=== PATIENT | male | born 1975 | race Two or more races ===

== ENCOUNTER 2019-05-22 16:38 | Inpatient (IN) | payer OTHER ==
[2019-05-22 18:36] VITALS: BMI 30.7
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
[2019-05-22] MEDS ORDERED: ALBUTEROL SO4 8 GM HFA INHALER IH PRN (20:05)
[2019-05-22] MEDS ORDERED: ALBUTEROL SO4 0.083% IH SOL 2.5 MG/3 ML VIAL.NEB. NEB PRN (20:05)
[2019-05-22] MEDS ORDERED: cloNIDine HCL 0.1 MG TABLET PO SCH (20:15)
[2019-05-22] MEDS ORDERED: LOPERAMIDE HCL 2 MG CAPSULE PO PRN (20:21)
[2019-05-22] MEDS ORDERED: MENTHOL/PHENOL 1 EACH UD MM PRN (20:21)
[2019-05-22] MEDS ORDERED: MAGNESIUM CITRATE 300 ML BOTTLE PO PRN (20:21)
[2019-05-22] MEDS ORDERED: P-EPHED 60MG/TRIPROLIDI 2.5MG TABLET PO PRN (20:21)
[2019-05-22] MEDS ORDERED: guaiFENesin 200 MG/10 ML 10 ML UNIT-DOSE CUPS PO PRN (20:21)
[2019-05-22] MEDS ORDERED: MAG HYDROX/AL HYDROX/SIMETH 30 ML UNIT-DOSE CUP PO PRN (20:21)
[2019-05-22] MEDS ORDERED: IBUPROFEN 400 MG TABLET (FP) PO PRN (20:21)
[2019-05-22] MEDS ORDERED: MAGNESIUM HYDROX 2400MG/30ML ORAL SUSPENSION 30 ML CUP PO PRN (20:21)
[2019-05-22] MEDS ORDERED: THIAMINE HCL 100 MG TABLET (FP) PO SCH (22:00)
[2019-05-22] MEDS ORDERED: MELATONIN 5 MG TABLETS PO PRN (22:00)
[2019-05-22 23:31] VITALS: BP 123/82; PULSE 96; TEMP 98.4
--- NOTE | 2019-05-23 01:06 | DS ---
[facility] Detox Discharge Summary Admission Date: 05/22/19 Discharge Date: 05/23/19 - History Additional Comments: Patient was admitted to Rehab. for Alcohol dependence. He is demanding for a private room, stating that he gets easily agitated and that he does not want to harm any one. The facility is full to capacity and there is no additional bed available. Patient is demanding that the patient in a private room should be transferred to the room assigned to him to enable us put him in the private room. Patient was informed that it is not feasible or justifiable to do that at this time patient decided to sign out against medical advice. Risks and consequences of his action including the fact that the weather is terrible at this time reinforced. Patient verbalized that he is aware of that and will have someone pick him up. Patient refused to sign the "AMA" form. Nursing supervisor engraving and supervisor engraving notified. Vital Signs Temperature 98.4 F 05/22/19 23:29 Pulse Rate 96 H 05/22/19 23:29 Respiratory Rate 18 05/22/19 23:29 Blood Pressure 123/82 05/22/19 23:29 O2 Sat by Pulse Oximetry (%) Pertinent Past History: asthma - Physical Exam Results Vital Signs: Vital Signs Temperature 98.4 F 05/22/19 23:29 Pulse Rate 96 H 05/22/19 23:29 Respiratory Rate 18 05/22/19 23:29 Blood Pressure 123/82 05/22/19 23:29 O2 Sat by Pulse Oximetry (%) Pertinent Admission Physical Exam Findings: cocaine dependent - Medication Discharge Medications: Ambulatory Orders Clonidine HCl [Catapres] 0.1 mg PO DAILY 05/22/19 Quetiapine Fumarate [Seroquel -] 100 mg PO HS 05/22/19 Venlafaxine HCl [Effexor -] 100 mg PO DAILY 05/22/19 - Diagnosis (1) Cocaine abuse in remission Status: Chronic (2) Nicotine dependence Status: Chronic Qualifiers: Nicotine product type: cigarettes - AMA Did Patient Leave Against Medical Advice: Yes
[2019-05-23] MEDS ORDERED: PRENATAL VITAMINS W/ FOLIC ACID TABLET (FP) PO SCH (10:00)
--- NOTE | 2019-05-24 10:36 | EKG ---
Test Reason : Blood Pressure : / mmHG Vent. Rate : 079 BPM Atrial Rate : 079 BPM P-R Int : 152 ms QRS Dur : 086 ms QT Int : 368 ms P-R-T Axes : 070 050 029 degrees QTc Int : 421 ms NORMAL SINUS RHYTHM NORMAL ECG NO PREVIOUS ECGS AVAILABLE Confirmed by BENI BARNES, JOAQUIN ([id number]) on 05/24/2019 10:36:06 AM Referred By: Confirmed By:JOAQUIN BAZAN MD
== END 2019-05-23 00:55 | disposition left against medical advice (07) | DRG 770 ==
LOC: YASAS 16:38 → Y3N 21:51 → UNDOADMIN 21:51 → Y3W 21:55
PROVIDERS: ADMIT Neuromusculoskeletal Medicine & OMM; ATTEND Neuromusculoskeletal Medicine & OMM
PROC: HZ42ZZZ Group Counseling for Substance Abuse Treatment, Cognitive-Behavioral (ICD-10-PCS; principal; 2019-05-22)
DX: F14.20 Cocaine dependence, uncomplicated (principal); F12.20 Cannabis dependence, uncomplicated; F17.210 Nicotine dependence, cigarettes, uncomplicated; F31.9 Bipolar disorder, unspecified; J45.909 Unspecified asthma, uncomplicated; H53.149 Visual discomfort, unspecified
CPT/HCPCS: 93005; 93010